=== PATIENT | male | born 1945 | race Two or more races ===

== ENCOUNTER 2024-08-30 07:16 | Outpatient (CLI) | payer OTHER | END 2024-08-30 07:17 | disposition home or self-care (01) | LOC: NUCLEAR 07:16 | PROVIDERS: ATTEND Specialist | DX: I49.8 Other specified cardiac arrhythmias (principal); I25.9 Chronic ischemic heart disease, unspecified; I65.29 Occlusion and stenosis of unspecified carotid artery; Q23.81 Bicuspid aortic valve | CPT/HCPCS: 78452; 93017; A9500 ==